=== PATIENT | female | born 1990 | race Caucasian/White ===

== ENCOUNTER 2022-08-08 15:16 | Observation (INO) | payer OTHER, SELFPAY ==
[2022-08-08] VITALS (9 sets, daily range): BP systolic 97–114; BP diastolic 55–76; PULSE 75–111; RESP 16–18; TEMP 36.3–37.1; O2SAT 98–100; BMI 23.4; BMI 24.3
[2022-08-08 06:07] LABS: Internal QC Validated? YES +Cl - CLEAR BKGD; Pregnancy, Urine Negative Negative
[2022-08-08] MEDS: Lactated Ringers 1,000 ML 40 ML IV ×3 (06:42→10:53)
[2022-08-08 06:43] LABS: Magnesium 2.1 mg/dL (1.6-2.6)
[2022-08-08] MEDS: Acetaminophen 500 MG Tablet 1000 MG PO ×3 (06:43→23:33)
[2022-08-08] MEDS: Scopolamine 1mg/72hr Patch 1 PATCH TD (06:43)
[2022-08-08] MEDS: Gabapentin 600 MG Tablet PO (06:44)
[2022-08-08] MEDS: Magnesium 1 GM over 15 mins IV (06:55)
[2022-08-08 07:29] LABS: Bedside Glucose 82 mg/dL (74-106)
--- NOTE | 2022-08-08 07:30 | BR_PTH ---
PATIENT: YINA KIDD LOC: MS3 U#:[id number] AGE/SX: 31/F ROOM: [facility] – [place] RE08/08/[address]: Dr. Elijah Hogan MD : 1990 BED: 1 DIS: 08/09/2022 SPEC #: [id number] RECD: 08/08/22 15:19 STATUS: FARIDEH REKristen #: [id number] SINAN: 08/08/22 07:[address]: Elijah Hogan DEPT: SURGICAL PATHOLOGY RECD BY: Juli Mejia ENTERED: 08/09/22 08:52 SP TYPE: MAMOPLASTY OTHR DR: CORINA Madsen Tissues: A - Right breast, NOS B - Left breast, NOS Procedures: Surgery Specimen Level IV HEADER OPERATION: ERAS, breast reduction mammoplasty PRE-OP DIAGNOSIS: Bilateral macromastia, neck pain, thoracic back pain, bilateral shoulder pain TISSUE SUBMITTED: A ? Right breast tissue, B ? Left breast tissue MICROSCOPIC DIAGNOSIS A. Right breast tissue, reduction mammoplasty: Non-proliferative fibrocystic change and focal adenosis. Skin with no pathologic change. Densely collagenized tissue and lobular involution. B. Left breast tissue, reduction mammoplasty: Non-proliferative fibrocystic change. Skin with no pathologic change. Densely collagenized tissue and lobular involution. AM:elizabeth 08/13/2022 MICROSCOPIC DESCRIPTION Slides are reviewed. GROSS DESCRIPTION A - Received in fixative is one container labeled with the patient's name and designated right breast tissue. The specimen consists of multiple irregular fragments of yellow-vargas fibrofatty tissue (>35) and ranging in size from 0.2 to 10.0 and in?aggregate weighing 510 gm. Grossly unremarkable pink-vargas skin is adherent to several fragments. Serial sections reveal dense white rubbery tissue. No distinct mass lesions are identified. [employer] sections are submitted in five cassettes. B - Received in fixative is one container labeled with the patient's name and designated left breast tissue. The specimen consists of multiple irregular fragments of yellow-vargas fibrofatty tissue (15) and ranging in size from 2.5 to 11.0 and in?aggregate weighing 455 gm. Grossly unremarkable pink-vargas skin is adherent to several fragments. Serial sections reveal dense white rubbery tissue. No distinct mass lesions are identified. [employer]er sections are submitted in five cassettes. / AM:elizabeth 08/10/2022 TC:5 CPT: 83253 x2
[2022-08-08] MEDS: Clindamycin 900 MG/50 ML BAG 75 MG IV (07:49)
[2022-08-08] MEDS: Lidocaine 1% /Epi 1:100 (20ml) 20 ML Vial (08:30)
[2022-08-08] MEDS: Lactated Ringers 1,000 ML 60 ML IV ×2 (14:11→17:58)
--- NOTE | 2022-08-08 15:06 | OP.PCM_ITS ---
Problems Associated Problem List Diagnoses (1) Macromastia: (2) Chronic neck pain: (3) Chronic thoracic back pain: (4) Left shoulder pain: (5) Right shoulder pain: (6) Intertrigo: Report of Operation Date of Procedure: 08/08/22 Pre-Operative Diagnosis: 1. Bilateral macromastia. 2. Chronic neck pain. 3. Chronic thoracic back pain. 4. Bilateral shoulder pain from shoulder grooving from the weight of her breasts on her bra straps. 5. Inframammary intertrigo. Post-Operative Diagnosis: Same. Surgery/Procedure Performed:: Bilateral breast reduction mammaplasty. Description of Surgical Findings:: 31 year old woman presents with complaints of bilateral macromastia as well as associated painful symptomatology of neck pain, thoracic back pain, bilateral shoulder pain from shoulder grooving from the weight of her breasts on her bra straps, and inframammary intertrigo for which she uses deodorant with minimal relief and without resolution of her symptomatology over the past 6 months. She denies any trauma to her breasts.? Denies any nipple discharge.? She has difficulty with activities of daily living especially chores around the house because of her painful symptomatology. She did have a mammogram in 2016 in [place].? She states there was a small mass in the left breast near the inframammary fold and was told it was benign according to the patient.? She was told to repeat the mammogram as needed if the mass were to change. She states in the last 6 months, she has lost about 17 lbs without relief in her painful breast symptomatology.?We have received medical approval for the breast reduction surgery and is scheduled for 08/08/22.? She presents at this time for her preop visit to answer any last minute questions she may have and to sign the office consent. Patient was informed of the risks and complications of the procedure including alternatives to surgery. These were discussed with the patient personally. Patient voices understanding and wishes to proceed. Some of the risks and complications were included in a form from the [employer] [employer]. Potential risks and complications included but not inclusive of bleeding, infection, seroma, hematoma, bruising, swelling, prolonged need for drains, loss of sensation to skin, partial or complete loss of skin flap and/or nipple, wound breakdown, need for wound care, poor scarring, poor aesthetic outcome, intra operative cardiac or neurologic events, DVT, PE, and reaction to anesthesia.? IV Fluids - 3200 ml. Urine Output - 500 ml. Tissue removed from the left breast - 450 grams. Tissue removed from the right breast - 490 grams. I used AxioFill Placental Connective Tissue Powder, (I used 500 mg x2, one in each breast). Catalog Number - [id number]. Lot Number - [id number]. Expiration - January 18, 2027, (Left Breast). Catalog Number - [id number]. Lot Number - [id number]. Expiration - January 18, 2027, (Right Breast). I used Cortes absorbable hemostat, (I used 4 vials, 2 in each breast). Reference Number - [id number]. Lot Number - [id number]. Expiration - January 15, 2027, (one vial in Left Breast and one vial in Right Breast). Reference Number - [id number]. Lot Number - [id number]. Expiration - March 17, 2027, (one vial in Left Breast and one vial in Right Breast). ? Surgeon: Elijah Hogan MD manager concrete: Hernando Ortega RNFA Type of Anesthesia: General Anesthesiologist: Ender Geller MD and Vicky Garcai CRNA Specimen's removed: 1. Left breast tissue to Pathology. 2. Right breast tissue to Pathology. Drains: Sivakumar x2 (one in each breast). Estimated Blood Loss (mL): 150. Fluids Replaced: 3700 ml (IV Fluids 3200 ml, Urine Output 500 ml). Description of Procedure: In the preop area, the patient was placed in the sitting position and preoperative markings were made.? The sternum midline was marked down to the umbilicus.? The inframammary folds were marked bilaterally.? The midclavicular line was then marked down to the nipple, then from the nipple to the inframamma ry fold.? The inframammary fold was then superimposed on the midclavicular line and I made a point 1 cm below that to be the new position of the nipple-areolar complex.? 7 cm lines were then drawn divergent from that point to encompass the nipple-areolar complex.? The distance between the divergent lines was 9 cm.? The patient was then placed in the supine position and taken to the operating room and placed under general anesthesia and her breasts were prepped and draped in usual fashion.? Ioban draping was also used.? SCDs were placed for DVT prophylaxis.? Perioperative antibiotics were given intravenously.? A Dickinson catheter was also placed. ? I then roselia straight lines down from the lines drawn divergent around the nipple-areolar complex down to the inframammary fold.? The width of the pedicle is 9 cm.? I then used a 42 mm circular template for a new size of the nipple-areolar complex.? The central markings were infiltrated with Xylocaine and epinephrine.? The central skin was then deepithelialized.? I started on the left side first and then went to the right side.? I then mobilized medial and lateral breast flaps at the level of Kobe's fascia down to about 1-2 cm from the chest wall.? This was met in the midline of the breast with dissection at the level of Kobe's fascia down to about 1-2 cm from the chest wall.? Once the central breast mound pedicle was from the skin envelope, the reduction was then begun.? Most of the tissue was removed from the superior aspect of the breast and the lateral aspect of the breast.? I then sutured the leading edge of the medial and lateral breast flaps to the midline of the inframammary fold with 2-0 Vicryl suture.? The vertical incision was approximated using surgical clips.? The excess tissue from the medial and latera l breast flaps were excised and the horizontal incision was approximated using surgical clips.? The patient was then placed in a sitting position.? Using a vertical limb length of 5 cm, I roselia the new position of the new nipple-areolar complexes on both breasts.? They were in good position on the central aspect of the breast mound.? Good symmetry was noted between the left breast and the right breast.? Good shape and contour and projection were noted and appeared clinically to be a low C cup.? The patient was then placed back in the supine position and the surgical clips were removed.? The breast wounds were then irrigated with Irrisept 0.05% Chlorhexidine solution which was followed by saline irrigation.? Hemostasis was obtained using electrocautery.? The tissue removed from the left breast was 450 grams.? The tissue removed from the right breast was 490 grams.? The tissue that was removed from the breasts was sent to Pathology for analysis to rule out carcinoma. ? After hemostasis was obtained using electrocautery, I then sprayed Cortes absorbable hemostat into both breast wounds to minimize seroma formation.? I used two vials for each side.? I then placed a size 15 Sivakumar drain into each breast wound to be brought through the lateral aspect of the horizontal incision.? I then closed the breast wounds by first approximating the leading edge of the medial and lateral breast flaps to the midline of the inframammary fold with 2-0 Vicryl suture.? I then placed AxioFill placental connective tissue powder into both wounds at the level of the Tzone to help with the healing process. I used 500 mg for each side. The deep dermis and subcutaneous tissue of the vertical incision and the horizontal incisions were approximated using 3-0 Monocryl interrupted sutures.? ? The horizontal incision was then approximated using 4-0 V-Loc unidirectional barbed running subcuticular suture.? I also placed a few 4-0 Prolene vertical mattress interrupted sutures at the level of the Tzone.? The vertical incision was then closed on the skin with 4-0 Prolene interrupted sutures.? With a vertical limb length of 5 cm, I roselia a circular incision where the nipple-areolar complex would be brought through this keyhole incision.? Incisions were made and the nipple areolar complex was brought through the keyhole incision.? The nipple- areolar complex was secured to the breast skin using 3-0 Monocryl interrupted sutures for deep dermis and subcutaneous tissue.? The skin was approximated using 4-0 Prolene simple interrupted sutures.? This was then covered with Histoacryl skin tissue adhesive.? I sutured the drains to the skin using 3-0 nylon suture.? At the end of the procedure, the breasts were soft and symmetrical with no evidence of vascular compromise.? No evidence of hematomas were noted.? The nipples were viable.?The operative blood loss was 150 ml. I then dressed the breasts with a Kerlix gauze and a surgical bra.? Then patient tolerated the procedure well and will be sent to the recovery room in satisfactory condition.? She will be admitted for surgical observation overnight stay.? She will go home tomorrow once she is tolerating oral pain medication.? I will remove the drains in a few days.? She will keep her head elevated during the initial postoperative period.? She will be maintained on a lifting restriction and keep her head elevated during the initial postoperative period. Post-discharge, she may get a compression sports bra instead of the surgical bra. She was also fitted for a compression garment that she can wear as well.? She will have the Dickinson removed in the morning.? She will be sent home on antibiotics and pain medicine. ?She will keep her head elevated during the initial postoperative period. She will be on a lifting restriction for 6 weeks. Sutures will be removed in 1-2 weeks. Grafts/Implants Used: AxioFill placental connective tissue powder, (500mg x2), Cortes x4 Procedure Start Time: 08:39 Procedure Stop Time: 15:17 Complications None. Admit VTE Documentation VTE Present on Admission: No VTE Mechan Device Prophylaxis: SCD's VTE Pharm Prophylaxis ordered?: Yes Addendum Addendum: Surgery Charges CPT - 09058-08 ICD-10 - N62, M54.2, M54.6, M25.511, M25.512, L30.4 [id number] N62, M54.2, M54.6, M25.511, M25.512, L30.4
[2022-08-08] MEDS: oxyCODONE 5 MG Tablet PO ×2 (17:59→23:56)
[2022-08-08] MEDS: Gabapentin 100 MG Capsule 200 MG PO (17:59)
[2022-08-08] MEDS: Lithium Carbonate 300mg Capsule 300 MG PO (18:00)
[2022-08-08] MEDS: Clindamycin 600 MG/50 ML BAG 100 MG IV (20:11)
[2022-08-08] MEDS: HYDROmorphone 1 MG/ML Syringe IV (20:11)
[2022-08-08] MEDS: Docusate Sodium 100 MG Capsule PO (20:38)
[2022-08-09 02:04] VITALS: BP 103/59; PULSE 84; RESP 16; TEMP 36.8; O2SAT 100
[2022-08-09] MEDS: Clindamycin 600 MG/50 ML BAG 100 MG IV ×2 (04:59→14:02)
[2022-08-09] MEDS: Acetaminophen 500 MG Tablet 1000 MG PO ×3 (05:00→17:47)
[2022-08-09] MEDS: HYDROmorphone 1 MG/ML Syringe IV ×2 (05:03→10:54)
[2022-08-09 06:04] VITALS: BP 107/62; PULSE 67; RESP 16; TEMP 36.9; O2SAT 100
[2022-08-09 06:11] LABS: Hematocrit 30.5 % (37-47); Hemoglobin 9.8 g/dL (12.0-15.0); Mean Corp Hgb Conc 32.1 g/dL (32-36); Mean Corpuscular Hgb 30.5 pg (27.0-32.0); Mean Platelet Vol. 9.8 fl (6.2-12.0); Platelet Count 283 K/mm3 (150-450); RBC Distribution Width CV 11.9 % (11.6-14.6); RBC Distribution Width SD 41.1 fl (35.1-43.9); Red Blood Count 3.21 M/mm3 (4.2-5.4); White Blood Count 13.4 K/mm3 (4.4-11.0)
[2022-08-09 06:49] VITALS: O2SAT 97
[2022-08-09 07:04] LABS: Anion Gap 4 (5-15); BUN 8 mg/dL (7-18); BUN/Creat Ratio 14.1 RATIO (10-20); Calcium,Total 8.4 mg/dL (8.5-10.1); Chloride 108 mmol/L (98-107); Creatinine, Serum 0.57 mg/dL (0.55-1.02); EST Glomerular Filtration Rate 133 mL/min (>60); Est Glom Filt Rate - Afr Amer 161 mL/min (>60); Estimated Creatinine Clearance 125.75 ml/min; Glucose 110 mg/dL (74-106); Potassium 4.1 mmol/L (3.5-5.1); Prealbumin 18.4 mg/dL (20.0-40.0); Sodium Level 138 mmol/L (136-145)
[2022-08-09] MEDS: Docusate Sodium 100 MG Capsule PO (08:32)
[2022-08-09] MEDS: Gabapentin 100 MG Capsule 200 MG PO ×3 (08:32→17:48)
[2022-08-09] MEDS: Enoxaparin 40 MG/0.4 ML Syringe SC (08:32)
[2022-08-09] MEDS: Lithium Carbonate 300mg Capsule 900 MG PO (08:32)
[2022-08-09] MEDS: oxyCODONE 5 MG Tablet PO ×3 (08:49→18:30)
[2022-08-09 10:04] VITALS: BP 106/67; PULSE 80; RESP 18; TEMP 36.8; O2SAT 100
--- NOTE | 2022-08-09 10:25 | CASEMGMT ---
RN CM: This RN CM met with pt face to face at bedside. Pt alert and answering questions appropriately. Pt states her significant other will be assisting her at discharge with household tasks and mobility but unable to assist with dressing changes, etc. Pt states S.O. will be with her throughout the weekend and if she needs additional care, pt states she can stay with her mother who is able to assist with all care needs. Will discuss drsg change needs with pt's RNAnders Zhou RN CM
[2022-08-09] MEDS: 0.9% Saline Lock 10 ML Syringe IV (10:54)
[2022-08-09 14:06] VITALS: BP 106/68; PULSE 70; RESP 18; TEMP 36.7; O2SAT 100
[2022-08-09 17:50] VITALS: BP 96/55; PULSE 88; RESP 18; TEMP 36.6; O2SAT 100
--- NOTE | 2022-08-09 18:21 | PCM.PN.SRG ---
Subjective Subjective Postop #1 Patient is resting comfortably. Has incisional pain. Tolerating po analgesia. She is steady on her feet with ambulation. Voided without difficulty after the andrade was removed. Objective Data Objective Data Vital Signs: Vital Signs Temp Pulse Resp BP Pulse Ox O2 Del Method O2 Flow Rate 98 F 88 18 96/55 L 100 Room Air 2 08/09/22 17:50 08/09/22 17:50 08/09/22 17:50 08/09/22 17:50 08/09/22 17:50 08/09/22 17:50 08/08/22 20:03 Oxygen Flow Rate (L/min) 2 Oxygen Delivery Method Room Air Weight: 142 lb Body Mass Index (BMI) 24.3 Intake & Output: Intake and Output for Last 24 Hours 08/07/22 08/08/22 08/09/22 23:59 23:59 23:59 Intake Total 6202 / 6202 2598 / 2598 Output Total 671 / 671 1810 / 1810 Balance 5531 / 5531 788 / 788 Drainage 96 ml yesterday, 240 ml today Prealbumin from 08/09/22 was 18.4. Encouraged nutritional supplementation with protein to help the healing process. Lab / Micro Data Lab results narrative: Hgb was 9.8 which is decreased from 12.3. She has anemia due to expected blood loss. The breast incisions are dry and intact. No clinical evidence of hematoma. The operative blood loss was 150 ml. She also has IV fluid dilution as her I's/O's are positive 5800 ml. She was started on Iron supplementation. Will recheck a Hgb as an outpatient in a week. Result Diagrams: 08/09/22 05:55 08/09/22 05:55 Labs: Laboratory Results - last 24 hr 08/09/22 05:55: WBC 13.4 H, RBC 3.21 L, Hgb 9.8 L, Hct 30.5 L, MCV 95.0, MCH 30.5, MCHC 32.1, RDW Std Deviation 41.1, RDW Coeff of Terrie 11.9, Plt Count 283, MPV 9.8 08/09/22 05:55: Sodium 138, Potassium 4.1, Chloride 108 H, Carbon Dioxide 26.0, Anion Gap 4 L, BUN 8, Creatinine 0.57, Estim Creat Clear Calc 125.75, Est GFR (MDRD) Af Amer 161, Est GFR (MDRD) Non-Af 133, BUN/Creatinine Ratio 14.1, Glucose 110 H, Calcium 8.4 L, Prealbumin 18.4 L Physical Exam Narrative General - Alert and Oriented. HEENT - PERRL. EOMI. Neck - Supple and nontender. Breasts - soft and symmetrical. Incisions are dry and intact. No clinical evidence of hematoma. Nipples are viable. Abdomen - Soft and nondistended. Extremities - FROM. No axillary adenopathy. Radial pulses are palpable. Neuro - CN II-XII grossly intact. Psych - Normal mood and affect. Assessment & Plan Assessment/Plan (1) Macromastia: (2) Chronic neck pain: (3) Chronic thoracic back pain: (4) Left shoulder pain: (5) Right shoulder pain: (6) Intertrigo: (7) Acute postoperative anemia due to expected blood loss: PLAN: Hgb was 9.8 which is decreased from 12.3.? She has anemia due to expected blood loss.? The breast incisions are dry and intact.? No clinical evidence of hematoma.? The operative blood loss was 150 ml.? She also has IV fluid dilution as her I's/O's are positive 5800 ml.? She was started on Iron supplementation.? Will recheck a Hgb as an outpatient in a week. PLAN: Plan Patient's breasts are soft and symmetrical. Incisions are dry and intact. Nipples are viable. No clinical evidence of hematoma. Has incisional pain and is tolerating po analgesia. She is steady on her feet with ambulation. Voided without difficulty after the andrade was removed. Hgb was 9.8 which is decreased from 12.3.? She has anemia due to expected blood loss.? The breast incisions are dry and intact.? No clinical evidence of hematoma.? The operative blood loss was 150 ml.? She also has IV fluid dilution as her I's/O's are positive 5800 ml.? She was started on Iron supplementation.? Will recheck a Hgb as an outpatient in a week. Prealbumin from 08/09/22 was 18.4. Encouraged nutritional supplementation with protein to help the healing process. Discharge home today. Followup 08/13/22, to have the drains removed. Wrote script for Cleocin until the drains are removed and for Acidophilus Probiotic. Wrote script for Percocet for pain (28 tabs). Keep head elevated. No heavy lifting. 20 lb lifting restriction.
--- NOTE | 2022-08-09 18:37 | PCM.DC ---
Discharge Instructions Diet Discharge Diet: No restrictions and - (encourage nutritional supplementation with protein to help the healing process.) Activity Discharge Activity: May Not Drive, May Not Shower (until drains are removed.) and - (keep head elevated. no heavy lifting.) May shower in (days): 4 (after drains removed.) May resume sexual activity in: 10-14 days Weight Bearing Status: Weight bearing as tolerated Lifting Restrictions: 20 lbs. Keep extremity elevated above heart level: - (elevate head.) Dressing / Incision Call your doctor if your incision/area has: Continuous Slow Oozing, Sudden Increased Bleeding, Increased Pain/ Swelling, Increased Redness, Foul Smelling Discharge and Swelling at the incision site Call your doctor if you observe: Fever of 101 or Higher, Coldness, Increased Pain, Shortness of breath, Chest pain, Calf discomfort and Uncontrolled pain Remove Dressing in: 2 days (only if there is drainage from the incisions or the skin is itchy. Otherwise will change dressing in the office on Saturday) Cleanse incision/area with: - (may get incisions wet in the shower after the drains are removed.) Drain: Suction (denilson drain x2 to bulb suction. Empty and record output daily.) Follow Up Care Please Follow Up With: Elijah Hogan MD When: 08/13/22 at 1000am. call [phone] if questions. Test Results: Test results from this visit will be discussed in further detail at your follow-up appointment, if applicable. Discharge Plan Admission Admit Date/Time: 08/08/22 15:16 Primary Reason for Your Visit: bilateral breast reduction mammaplasty Attending Provider: Elijah Hogan Primary Care Provider: Rosendo Reyes Discharge Orders/Prescriptions Prescriptions: New clindamycin HCl [Cleocin HCl] 300 mg capsule 300 mg PO TID Qty: 12 0RF L.acidoph,saliva-B.bif-S.therm [Acidophilus Probiotic Blend] 175 mg capsule 1 cap PO DAILY Qty: 15 0RF oxycodone-acetaminophen [Percocet] 5-325 mg tablet 1 tab PO Q6H PRN (Reason: pain (scale score 7-10)) 7 Days Qty: 28 0RF Rx Instructions: 28 tabs (twenty-eight) iron ps [id number]-[id number] acid 150-25-1 mg-mcg-mg capsule 1 cap PO DAILY Qty: 30 1RF Continued lithium carbonate 300 mg tablet 900 mg PO DAILY norethindrone ac-eth estradiol [03/09 (21)] 1-20 mg-mcg tablet 1 tab PO DAILY Other Ambulatory Orders: CBC-Complete Blood Cnt No Diff (Routine) Timeframe: 1 Week Facility: [facility] - Location: Laboratory Ordered By: Dr. Elijah Hogan Referrals / Follow Up: Rosendo Reyes PA [Primary Care Provider] - Disposition Disposition (needs filled in before D/C Order can be placed): Home, Self Care
== END 2022-08-09 19:53 | disposition home or self-care (01) ==
LOC: SDC 15:42 → MS3 15:42
PROVIDERS: Anesthesiology; Admitting Provider Surgery; PCP Physician Assistant; Referring Provider Surgery; Visit Provider Surgery
PROC: 0H0U0ZZ Alteration of Left Breast, Open Approach (ICD-10-PCS; CPT 19318; principal; 2022-08-08 07:15)
DX: N62 Hypertrophy of breast (principal); F31.9 Bipolar disorder, unspecified; M25.512 Pain in left shoulder; M54.2 Cervicalgia; G89.29 Other chronic pain; M25.511 Pain in right shoulder; M54.6 Pain in thoracic spine; Z79.899 Other long term (current) drug therapy; L30.4 Erythema intertrigo; K58.9 Irritable bowel syndrome, unspecified
CPT/HCPCS: 19318; 00402; 36415; 80048; 81025; 82962; 83735; 84134; 85027; 88305; 94668; 96365; 96366; 96372; 96375; 96376; 99221; 99252; J7120; A4216; G0378; G0463; J2405; J3475; Q9968

== ENCOUNTER 2022-08-16 22:22 | Emergency (ER) | payer OTHER, SELFPAY ==
[2022-08-16 22:24] VITALS: BP 118/85; PULSE 88; RESP 16; TEMP 36.8; O2SAT 100; BMI 21.3
--- NOTE | 2022-08-16 22:43 | EDS_ITS ---
HPI History of Present Illness Chief Complaint: Allergic Reaction Informant: patient and parent (mother) Narrative Narrative: Patient had a bilateral breast reduction surgery here by Dr. Hogan 8 days ago. She has noticed some increased soreness in both of her breasts over the last couple days; the drains were taken out 3 days ago in the office. She presents mainly because of a pruritic rash that just started tonight in the last several hours on her abdomen and bilateral thighs. There is no pain. No fevers or chills. No drainage from the breast surgical incisions/suturing which mom is concerned about and wants me to evaluate. Patient has a mild left-sided headache without any vision changes or focal neurologic symptoms, mild gradual in onset, no thunderclap, does not typically have migraines. She is on lithium, control tablets, and no other new medications except for oxycodone that she stopped taking 1 week ago. Denies any new soaps or shampoos or topicals in the area of the rash that could explain this. [facility] Medical History Back pain Bipolar disorder Breast lump Chronic neck pain Chronic thoracic back pain History of IBS History of rheumatic fever IBS (irritable bowel syndrome) Intertrigo Left shoulder pain Macromastia Non-smoker Right shoulder pain Home Medications lithium carbonate 300 mg tablet 900 mg PO DAILY 06/29/22 [History Last Taken 08/07/22] norethindrone acetate 1 mg-ethinyl estradiol 20 mcg tablet (Junel) 1 tab PO DAILY 06/29/22 [History Last Taken 08/07/22] L.acidophil,salivari-Bifido bifidum-Strep thermoph 175 mg capsule (Acidophilus Probiotic Blend) 1 cap PO DAILY #15 caps 08/09/22 [Rx Last Taken Unknown] clindamycin HCl 300 mg capsule (Cleocin HCl) 300 mg PO TID #12 caps 08/09/22 [Rx Last Taken Unknown] fluconazole 150 mg tablet (Diflucan) 150 mg PO DAILY #7 tabs 08/09/22 [Rx Last Taken Unknown] iron polysacch cplx 150 mg iron-vit B12 25 mcg-folic acid 1 mg capsule 1 cap PO DAILY #30 caps 08/09/22 [Rx Last Taken Unknown] Allergy/AdvReac Type Severity Reaction Status Date / Time cephalexin [From Keflex] Allergy Severe Vomiting Verified 08/16/22 22:26 levofloxacin [From Levaquin] Allergy Severe Tendinitis Verified 08/16/22 22:26 NSAIDS (Non-Steroidal AdvReac Other Verified 08/16/22 22:26 Anti-Inflamma red dye AdvReac Other Verified 08/16/22 22:26 Family History Mother Anxiety Depressed Mental disorder Father Anxiety Depressed Mental disorder Suicide and self-inflicted injury Grandmother Depressed Mental disorder Ovarian cancer Sister Kidney disease Surgical History History of bilateral breast reduction surgery History of lithotripsy History of tonsillectomy [place] teeth extracted Social History Smoking Status: Never smoker alcohol intake: current details: social substance use type: does not use ROS ROS ED Constitutional Constitutional ED: Denies chills or fever(s) Gastrointestinal Gastrointestinal: Reports nausea; Denies abdominal pain, diarrhea, melena or vomiting Genitourinary Genitourinary ED: Reports other Details: Bilateral breast soreness see HPI Musculoskeletal Musculoskeletal: Denies back pain or neck pain Integumentary Reports pruritus and rash Neurologic Neurologic: Denies headache(s), paresthesias or weakness Allergic/Immunologic Allergic/Immunologic ED: Denies mouth swelling or tongue swelling EXAM Physical Exam Const Vital Signs: 08/16/22 22:24 Temperature 98.3 F Temperature Source Temporal Pulse Rate 88 Respiratory Rate 16 Blood Pressure 118/85 H Blood Pressure Mean 96 Pulse Ox 100 Oxygen Delivery Method Room Air Positive well nourished and well developed General Appearance ED: well developed and NAD HEENT Reports moist mucous membranes HEENT Narrative: No oral sloughing/lesions Eyes PERRL and EOMs intact bilaterally Neck supple Neck Narrative: F ROM Chest Wall inspection of chest normal Resp clear to auscultation bilaterally Resp Narrative: Both postoperative breasts were evaluated, there is no area of erythema, suturing is all intact there is no dehiscence, discharge, erythema or focal tenderness on any of the incisions. Some of them are horizontal mattress sutur es, and mom thought that the sutures were eating the skin but I reassured her that these are normal-appearing horizontal mattress sutures meant to take the tension off of the skin while it heals. Neuro oriented x3, CN's II-XII intact bilaterally, no sensory deficits noted and gait normal Motor Exam: strength 5/5 throughout Psych mental status grossly normal Skin Skin Narrative: Barely noticeable blanching erythematous maculopapular fine rash on the abdomen and even less noticeable on both thighs. It is palpable but not visible on the thighs. No other rash. No petechia or purpura. All compartments soft and nondistended. Itchy and nontender. MDM MDM MDM Narrative Medical decision making narrative: They presents saying that she has hives. This is not urticaria, I do not know the etiology of the rash but it does not look dangerous in any way. She does not have Neil-Lux syndrome or anything dangerous at this time. I recommend supportive care with Benadryl, I would not recommend steroids so as not to disturb healing of her operative wounds, I will give her Reglan because she feels a little nauseated and has a headache to see if that helps along with some Tylenol for pain, close outpatient follow-up regarding her postoperative pain is advised, my guess is that it is due to small seromas since taking out the drains, there is no indication or suspicion for acute infection here at this time but we discussed signs and symptoms of that and reasons to return here. They are comfortable with that plan all questions answered at the bedside. Discharge Plan Triage Chief Complaint: Allergic Reaction ED Provider: Mauro Lopez Dx/Rx/DC Orders Clinical Impression: Dermatitis, Post-operative pain Instructions: Heat Rash Ch, Managing Post-Op Pain at Home Prescriptions: No Action lithium carbonate 300 mg tablet 900 mg PO DAILY norethindrone ac-eth estradiol [03/09 (21)] 1-20 mg-mcg tablet 1 tab PO DAILY clindamycin HCl [Cleocin HCl] 300 mg capsule 300 mg PO TID Qty: 12 0RF iron ps [id number] acid 150-25-1 mg-mcg-mg capsule 1 cap PO DAILY Qty: 30 1RF fluconazole [Diflucan] 150 mg tablet 150 mg PO DAILY Qty: 7 0RF L.acidoph,saliva-B.bif-S.therm [Acidophilus Probiotic Blend] 175 mg capsule 1 cap PO DAILY Qty: 15 0RF Primary Care Provider: Rosendo Reyes Referrals: Elijah Hogan MD [Med Staff - Active Staff] - 3-5 Days Rosendo Reyse PA [Primary Care Provider] - Disposition Disposition: Home, Self Care
[2022-08-16] MEDS: Acetaminophen 500 MG Tablet 1000 MG PO (22:58)
[2022-08-16] MEDS: Metoclopramide 10 MG Tablet PO (22:59)
[2022-08-16] MEDS: DiphenhydrAMINE 25 MG Capsule 50 MG PO (22:59)
== END 2022-08-16 23:12 | disposition home or self-care (01) ==
PROVIDERS: Emergency Provider Emergency Medicine; PCP Physician Assistant; Visit Provider Emergency Medicine
DX: L30.9 Dermatitis, unspecified (principal); G89.18 Other acute postprocedural pain
CPT/HCPCS: 99282

== ENCOUNTER → 2022-08-23 | Outpatient (CLI) | payer OTHER, SELFPAY ==
[2022-08-23 11:14] LABS: Hematocrit 41.8 % (37-47); Hemoglobin 13.4 g/dL (12.0-15.0); Mean Corp Hgb Conc 32.1 g/dL (32-36); Mean Corpuscular Hgb 30.3 pg (27.0-32.0); Mean Corpuscular Volume 94.6 fL (81-99); Mean Platelet Vol. 9.5 fl (6.2-12.0); Platelet Count 520 K/mm3 (150-450); RBC Distribution Width CV 12.5 % (11.6-14.6); RBC Distribution Width SD 43.7 fl (35.1-43.9); Red Blood Count 4.42 M/mm3 (4.2-5.4); White Blood Count 14.3 K/mm3 (4.4-11.0)
== END | disposition home or self-care (01) ==
PROVIDERS: PCP Physician Assistant; Referring Provider Surgery; Visit Provider Surgery
DX: D62 Acute posthemorrhagic anemia (principal)
CPT/HCPCS: 36415; 85027

== ENCOUNTER → 2022-09-13 | Outpatient (CLI) | payer OTHER, SELFPAY | END | disposition home or self-care (01) | LOC: LABSPEC 12:17 | PROVIDERS: PCP Physician Assistant; Referring Provider Nurse Practitioner Family; Visit Provider Nurse Practitioner Family | DX: T81.89XA Other complications of procedures, not elsewhere classified, initial encounter (principal); Z98.890 Other specified postprocedural states | CPT/HCPCS: 87070; 87075; 87205 ==

== ENCOUNTER → 2023-03-14 | Outpatient (CLI) | payer OTHER, SELFPAY ==
--- NOTE | 2023-03-14 09:07 | BI_ITS ---
MAMMOGRAPHY - BILATERAL DIAGNOSTIC REASON FOR EXAM: Female, 32 years old. Recent bilateral breast reduction surgery with bilateral palpable lumps. PERTINENT HISTORY: Non-contributory. TECHNIQUE: Digital bilateral breast tyrel (3D mammographic acquisition) in the CC and MLO projections. 2-D mediolateral oblique (MLO) and craniocaudad (CC) views of both breasts were obtained. CAD: Full Field Digital Mammography with Computer Added Detection was performed. COMPARISON: Comparison is made with prior abdomen examination dated January 11, 2015. FINDINGS: Breast Composition: The breasts are extremely dense, which lowers the sensitivity of mammography. There are no dominant masses or suspicious calcifications. No other significant abnormalities are identified. BI/DIAG MAMM W/CAD, BILAT IMPRESSION: Status post bilateral breast reduction surgery. With the patient''s history of bilateral palpable lumps, correlation with ultrasound is recommended. ASSESSMENT CATEGORY: BIRADS Category 0: Incomplete. Need additional imaging evaluation. A letter regarding these results will be sent to the patient by the facility within 30 days. Approximately 10% of breast cancers are not detected by mammography. A normal mammogram should not delay biopsy of a clinically suspicious abnormality. Electronically Signed: Feroz Carlos MD at 12:32 EST ,
--- NOTE | 2023-03-14 09:07 | US_ITS ---
STUDY: ULTRASOUND BREAST - RIGHT REASON FOR EXAM: Female, 32 years old. Recent breast reduction surgery. TECHNIQUE: Axial and longitudinal images of the RIGHT breast were performed with a high resolution ultrasound transducer. # OF IMAGES: 94 COMPARISON: Comparison is made with prior mammogram done earlier today. FINDINGS: RIGHT Breast: The medial aspect of the right breast was examined with ultrasound. There is dense fibroglandular tissue. No sonographic abnormality is seen. IMPRESSION: No sonographic abnormality is seen. ASSESSMENT CATEGORY: BIRADS Category 1: Negative. A letter regarding these results will be sent to the patient by the facility within 30 days. Electronically Signed: Feroz Carlos MD at 15:21 EST , STUDY: ULTRASOUND BREAST - LEFT REASON FOR EXAM: Female, 32 years old. Recent post reduction surgery. TECHNIQUE: Axial and longitudinal images of the LEFT breast were performed with a high resolution ultrasound transducer. # OF IMAGES: 94 COMPARISON: Comparison is made with prior mammogram done earlier today. FINDINGS: LEFT Breast: The medial aspect of the left breast was examined with ultrasound. There is dense fibroglandular tissue. Linear hypoechoic density is seen in the surface of the left periareolar region. Most likely postoperative changes. US/Breast Limited Unilateral IMPRESSION: Postoperative changes seen along the superior surface of the left periareolar region. ASSESSMENT CATEGORY: BIRADS Category 2: Benign. A letter regarding these results will be sent to the patient by the facility within 30 days. Electronically Signed: Feroz Carlos MD at 15:22 EST ,
== END | disposition home or self-care (01) ==
LOC: OPUS 09:05
PROVIDERS: PCP Physician Assistant; Referring Provider Nurse Practitioner Family; Visit Provider Nurse Practitioner Family
DX: N64.4 Mastodynia (principal); Z98.890 Other specified postprocedural states
CPT/HCPCS: 76642; 77062; 77066; G0279